=== PATIENT | female | born 1985 | race Caucasian/White ===

== ENCOUNTER 2017-08-05 15:49 | Outpatient (CLI) | payer BC ==
[~2017-08-05] VITALS: Ht 162.6 cm; Wt 79.6 kg
[2017-08-05 16:11] VITALS: Ht 162.6 cm; Wt 79.6 kg
[2017-08-05 16:12] VITALS: BP 130/76; PULSE 101; RESP 18
[2017-08-05] MEDS ORDERED: PREN1TAB79 PO (16:15)
[2017-08-05] MEDS ORDERED: FERR325T5 PO (16:15)
[2017-08-05] MEDS ORDERED: ONDANSETRON 4 MG INJ IV STA (16:31)
[2017-08-05] MEDS ORDERED: TERBUTALINE 1 MG/ML INJ SC ONE (17:00)
[2017-08-05] MEDS ORDERED: LACTATED RINGER'S 1,000 ML IV SCH (17:00)
[2017-08-05] MEDS ORDERED: BUTORPHANOL 2 MG INJ IV ONE (17:00)
--- NOTE | 2017-08-05 17:40 | RADRPT ---
PROCEDURE: OB ultrasound for biophysical profile CLINICAL INDICATION: Contractions. Biophysical profile. TECHNIQUE: Multiple sonographic images of the pelvis were obtained. Transabdominal view of the gr avid uterus are available for review. The images were reviewed on a PACS workstation. COMPARISON: None FINDINGS: breathing movement = 2/2 tone = 2/2 motion = 2/2 COLLIN = 2/2 COLLIN = 15.3 cm Single live intrauterine with cardiac activity. The fetus is in cephalic presentati on. The placenta is posterior, grade 1. IMPRESSION: 1. Single viable intrauterine gestation. 2. Biophysical profile = 8/8. 3. COLLIN = 15.3 cm. RPTAT: HCNS Physician Letty Date Time Electronically viewed and signed by Physician Letty on 08/05/2017 17:40 CS/
[2017-08-05 17:58] LABS: BASOPHILS % 0.2 % (0.0-2.0); EOSINOPHILS # 0.1 10^3/ul (0.0-0.5); EOSINOPHILS % 0.4 % (0.0-7.0); HEMATOCRIT 34.1 % (37.0-47.0); HEMOGLOBIN 11.6 g/dl (12.0-16.0); LYMPHOCYTES # 2.3 10^3/ul (0.8-2.9); LYMPHOCYTES % 13.8 % (15.0-51.0); MEAN CORPUSCULAR HEMOGLOBIN 29.4 pg (29.0-33.0); MEAN CORPUSCULAR VOLUME 86.3 fl (82.0-101.0); MEAN PLATELET VOLUME 10.8 fl (7.4-10.4); MONOCYTE # 0.9 10^3/ul (0.3-0.9); MONOCYTES % 5.6 % (0.0-11.0); NEUTROPHIL # 13.2 10^3/ul (1.6-7.5); PLATELET COUNT 195 10^3/UL (140-415); RED BLOOD COUNT 3.95 10^6/ul (4.20-5.40); WHITE BLOOD COUNT 16.7 10^3/ul (4.8-10.8)
--- NOTE | 2017-08-05 17:59 | RADRPT ---
PROCEDURE: US OB. CLINICAL INDICATION: contractions TECHNIQUE: Multiple sonographic images of the pelvis were obtained. The images were reviewed on a PACS workstation. COMPARISON: No prior studies are available for comparison. FINDINGS: The cervix is not visualized. There is a single viable intrauterine gestation. Cardiac activity is present with 152 beats per min rupesh. There is a cephalic presentation. Measurements were made in order to determine age. The results are as follows: BPD =7.9 cm HC =27.6 cm AC =26.9 cm FL =6.0 cm. Estimated gestational age of approximately 31 weeks, 1 day. The gestational age by LMP is 30 weeks, 4 days. The estimated date of delivery is 10/06/2017. The EFW = 1707 g +/- 256 g or 3 pounds, 12 ounces . The anatomic survey was not performed. The placenta is posterior, grade 1. IMPRESSION: Single viable intrauterine gestation of approximately 31 weeks, 1 day.. The estimated date of evi jaqueline is 10/06/2017 . Physician Letty Date Time Electronically viewed and signed by Physician Letty on 08/05/2017 17:59 CS/
[2017-08-05 18:01] LABS: ADD UMIC NO; UR ASCORBIC ACID NEGATIVE (NEGATIVE); UR BILIRUBIN (Dip) NEGATIVE (NEGATIVE); UR BLOOD (Dip) NEGATIVE (NEGATIVE); UR CLARITY CLEAR (CLEAR); UR COLOR STRAW (YELLOW); UR GLUCOSE (Dip) NEGATIVE (NEGATIVE); UR KETONES (Dip) NEGATIVE (NEGATIVE); UR LEUKOCYTE ESTERASE (Dip) NEGATIVE Leu/ul (NEGATIVE); UR NITRITE (Dip) NEGATIVE (NEGATIVE); UR SPECIFIC GRAVITY (Dip) 1.004 (1.003-1.030); UR TOTAL PROTEIN (Dip) NEGATIVE (NEGATIVE); UR UROBILINOGEN (Dip) NEGATIVE (NEGATIVE)
[2017-08-05 18:22] LABS: ALBUMIN/GLOBULIN RATIO 1.14; BILIRUBIN,INDIRECT 0.2 mg/dl (0-1.1); BILIRUBIN,TOTAL 0.2 mg/dl (0.2-1.3); CALCIUM 9.5 mg/dl (8.4-10.2); CREATININE 0.68 mg/dl (0.44-1.00); POTASSIUM 3.1 mmol/L (3.5-5.1); TOTAL PROTEIN 7.5 g/dl (6.1-8.1)
--- NOTE | 2017-08-05 21:07 | RADRPT ---
PROCEDURE: Limited obstetric ultrasound CLINICAL INDICATION: Pain TECHNIQUE: Multiple transverse and longitudinal grayscale images of the pelvis were obtained deluca sabdominally and transvaginally.. COMPARISON: same day FINDINGS: The cervix is closed with a length of 3.8 cm. RPTAT: AA IMPRESSION: Cervix length measures 3.8 cm. .Josiah De Luna MD, MD Date Time Electronically viewed and signed by .Josiah De Luna MD, MD on 08/05/2017 21:07 .S/
--- NOTE | 2017-08-06 01:04 | TRIAGE ---
OB Triage Datetime Report Generated by CPN: 08/06/2017 01:03 Datetime: 08/05/2017 19:30 Stage of : OB Triage Datetime: 08/05/2017 19:25 Stage of : OB Triage Pain Assessment Pain Scale: 0 Pain Presence: None/Denies Datetime: 08/05/2017 19:02 Stage of : OB Triage Datetime: 08/05/2017 18:30 Stage of : OB Triage Labor Evaluation Frequency: IRREG Monitor Mode: External Duration (sec)2399: 30 Quality: Mild Pattern: Normal: <= 5 Contractions in 10 Minutes Resting Tone [place]: Relaxed Heart Rate FHR Baseline Rate: 140 Monitor Mode: External US Variability: Moderate 6-25 bpm Accelerations: 10X10 Decelerations: None Pain Assessment Pain Scale: 2 Pain Presence: Constant Pain Type: Ache Pain Location: Abdomen Pain Goal: 0 Pain Relief Measures: Comfort Measures Datetime: 08/05/2017 17:30 Stage of : OB Triage Labor Evaluation Frequency: 2-3 Monitor Mode: External Duration (sec)2399: 70 Quality: Mild Pattern: Normal: <= 5 Contractions in 10 Minutes Resting Tone [place]: Relaxed Heart Rate FHR Baseline Rate: 150 Monitor Mode: External US Variability: Moderate 6-25 bpm Accelerations: 15X15 Decelerations: None Pain Assessment Pain Scale: 4 Pain Presence: Constant Pain Type: Ache Pain Location: Abdomen Pain Goal: 0 Pain Relief Measures: Comfort Measures Datetime: 08/05/2017 16:20 Stage of : OB Triage Labor Evaluation Frequency: 2-3 Monitor Mode: External Duration (sec)2399: 70 Quality: Mild Pattern: Normal: <= 5 Contractions in 10 Minutes Resting Tone [place]: Relaxed Heart Rate FHR Baseline Rate: 145 Monitor Mode: External US Variability: Minimal - Undetectable to <=5 bpm Accelerations: 10X10 Decelerations: None Pain Assessment Pain Scale: 4 Pain Presence: Constant Pain Type: Ache Pain Location: Abdomen Pain Goal: 0 Pain Relief Measures: Comfort Measures Datetime: 08/05/2017 16:10 Monitor Mode: External Datetime: 08/05/2017 16:05 Stage of : OB Triage Assessment Type: Triage EGA: 30.4 Maternal Assessment Level of Consciousness: Fully Conscious DTR's/Clonus: DTRs 2+; No Clonus Headache: Denies Blurred Vision: No Respiratory Effort: Unlabored; Regular Rhythm; Equal Expansion Breath Sounds, Left: Clear and Equal Breath Sounds, Right: Clear and Equal Nausea/Vomiting: Denies RUQ Epigastric Pain: Denies Lower Extremities Edema: None Degree: None Upper Extremities Edema: None Degree: None Facial Edema: None Temperature Route: Oral Fall Risk Assessment History of Falling: (0) No Secondary Diagnosis: (0) No Ambulatory Aid: (0) Bedrest/Nurse Assist IV Therapy: (0) No Gait: (0) Normal/Bedrest/Immobile Mental Status: (0) Oriented to Own Ability Fall Score: 0 Fall Risk Score Definition: No Risk: No action required Datetime: 08/05/2017 16:03 Time of Arrival: 08/05/2017 15:42 Arrived By: Ambulatory Arrived From: Home Chief Complaint: abdominal pain Movement: Present Contractions: Regular Rupture of Membranes: Denies Vaginal Bleeding: None Vaginal Discharge: Present Recent Sexual Intercouse: Denies Abdominal Trauma: Not Applicable Patient Complaints: Other Additional Patient Complaints: abdominal pain since last meal at 12pm -last ate at 12pm Time Provider Notified: 08/05/2017 16:31 Provider Notified: nita Initial Plan: EFM, UCs, IV hydration, U/S, CBC/CMP, UA, Urine Culture
--- NOTE | 2017-08-06 09:08 | CONS ---
Date/Time of Note Date/Time of Note DATE: 08/06/17 TIME: 08:43 Consultation Date/Type/Reason Admit Date/Time August 05, 2017 OB triage consult This patient is a 32 years old 2 para 1 0 living 1 who was delivered by section. Her estimated date of confinement is October 10, 2016 which makes her 30 weeks and 4 days today. She came to triage complaining of constant abdominal pain since noontime after eating her branch. In reviewing her past history she had an elevated blood pressure in her past and her history of bicornuate uterus as well as fibroid uterus. On examination she is a well-developed well-nourished patient in no acute distress. Her general vital signs are normal with blood pressure 130/76, pulse rate of 101 , temperature 98.0.. heart rate is around 145, the tracing is fairly benign with some variability occasional acceleration no decelerations. Reason for Consultation Laboratory Tests Test 08/05/17 15:45 08/05/17 17:30 08/05/17 19:30 Urine Color STRAW Urine Clarity CLEAR Urine pH 7.0 Urine Specific [place] 1.004 Urine Ketones NEGATIVEmg/dL Urine Nitrite NEGATIVEmg/dL Urine Bilirubin NEGATIVEmg/dL Urine Urobilinogen NEGATIVEmg/dL Urine Leukocyte Esterase NEGATIVELeu/ul Urine Hemoglobin NEGATIVEmg/dL Urine Glucose NEGATIVEmg/dL Urine Total Protein NEGATIVEmg/dl White Blood Count 16.710^3/ul Red Blood Count 3.9510^6/ul Hemoglobin 11.6g/dl Hematocrit 34.1% Mean Corpuscular Volume 86.3fl Mean Corpuscular Hemoglobin 29.4pg Mean Corpuscular Hemoglobin Concent 34.0g/dl Red Cell Distribution Width 14.0% Platelet Count 14046^3/UL Mean Platelet Volume 10.8fl Neutrophils % 79.0% Lymphocytes % 13.8% Monocytes % 5.6% Eosinophils % 0.4% Basophils % 0.2% Nucleated Red Blood Cells % 0.0/100WBC Neutrophils # 13.210^3/ul Lymphocytes # 2.310^3/ul Monocytes # 0.910^3/ul Eosinophils # 0.110^3/ul Basophils # 0.010^3/ul Nucleated Red Blood Cells # 0.010^3/ul Sodium Level 141mmol/L Potassium Level 3.1mmol/L Chloride Level 106mmol/L Carbon Dioxide Level 24mmol/L Anion Gap 14 Blood Urea Nitrogen 9mg/dl Creatinine 0.68mg/dl Glucose Level 97mg/dl Calcium Level 9.5mg/dl Total Bilirubin 0.2mg/dl Direct Bilirubin 0.00mg/dl Indirect Bilirubin 0.2mg/dl Aspartate Amino Transf (AST/SGOT) 18IU/L Alanine Aminotransferase (ALT/SGPT) 21IU/L Alkaline Phosphatase 89IU/L Total Protein 7.5g/dl Albumin 4.0g/dl Globulin 3.50g/dl Albumin/Globulin Ratio 1.14 Fibronectin NEGATIVE Current Medications Medications (Trade) Dose Ordered Sig/Tip Route PRN Reason Start Time Stop Time Status Last Admin Dose Admin Terbutaline Sulfate 0.25 mg 0.25 mg ONCE ONCE SC 08/05/17 17:00 08/05/17 17:01 DC 08/05/17 16:45 0.25 MG Lactated Ringer's (Lr) 1,000 ml @ 0 mls/hr Q0M IV 08/05/17 17:00 08/05/17 20:14 DC 08/05/17 17:38 1,200 MLS/HR Ondansetron HCl (Zofran Inj) 4 mg ONCE STAT IV 08/05/17 16:31 08/05/17 16:37 DC Butorphanol Tartrate (Stadol) 2 mg ONCE ONCE IV 08/05/17 17:00 08/05/17 17:01 DC Constitutional: No chills, No diaphoresis, No disoriented, No febrile, No improved, No no complaints, No other, No poor po, No requiring IVF, No requiring O2 Eyes: No discharge, No no complaints, No other, No pain, No redness, No visual change ENT: No bleeding, No congestion, No discharge, No dysphagia, No no complaints, No other, No pain, No sore throat Respiratory: No cough, No no complaints, No other, No pain, No pleuritic pain, No shortness of breath, No sputum, No wheezing Cardiovascular: No chest pain, No edema, No lightheadedness, No no complaints, No orthopenea, No other, No palpitations, No paroxysmal nocturnal dyspnea Gastrointestinal: other (Her abdomen is soft no rebound bowel sounds are audible no much of uterine contraction heart tone is normal no CVA tenderness), No blood, No constipation, No decreased appetite, No diarrhea, No flatus, No nausea, No no complaints, No pain, No passing stool, No vomiting Genitourinary: bleeding, discharge, dysuria, flank pain, hematuria, no complaints, other (Pelvic examination was not performed due to lack of any uterine contractions) Musculoskeletal: No back pain, No bone/joint pain, No neck pain, No no complaints, No other, No restricted range of motion, No swelling Skin: No bruising, No erythema, No laceration, No no complaints, No other, No pruritis, No rash, No skin lesions Neurologic: other, No confusion, No dizziness, No focal-weakness, No headache, No no complaints , No seizure, No syncope Endocrine: No dry skin, No no complaints, No other, No polydypsia, No polyuria , No temp intolerance Additional Comments On laboratory studies her CBC is within normal limits except for slight anemia with hemoglobin of 11.6 hematocrit 34.1 platelets was 195,000 Chem-12 were normal liver function tests electrolytes and all of the component of Chem-12 were within normal limits. urinalysis was normal no glycosuria no proteinuria. On ultrasound study report is a single viable intrauterine gestation with cardiac activity 152 bpm cephalic presentation. estimated gestational age was 31 weeks and 1 day estimated weight was 1707. They could not visualize the cervix her amniotic fluid index was reported 15.2 cm . biophysical profile 05/09. With these normal finding patient was reassured and was discharged home to rest at home and avoid hot and irritating foods to be followed in her [facility] clinic. For any major development such as very low movement, vaginal bleeding, any evidence of labor she can always return to triage Social History Smoking Status: Never smoker Exam/Review of Systems Vital Signs Vitals Vital Signs Date Time Temp Pulse Resp B/P Pulse Ox O2 Delivery O2 Flow Rate FiO2 08/05/17 16:12 98.0 101 18 130/76 Room Air Results Result Diagram: 08/05/17 1730 08/05/17 1730 Results 24 hrs Laboratory Tests Test 08/05/17 15:45 08/05/17 17:30 08/05/17 19:30 Urine Color STRAW Urine Clarity CLEAR Urine pH 7.0 Urine Specific [place] 1.004 Urine Ketones NEGATIVE Urine Nitrite NEGATIVE Urine Bilirubin NEGATIVE Urine Urobilinogen NEGATIVE Urine Leukocyte Esterase NEGATIVE Urine Hemoglobin NEGATIVE Urine Glucose NEGATIVE Urine Total Protein NEGATIVE White Blood Count 16.7 H Red Blood Count 3.95 L Hemoglobin 11.6 L Hematocrit 34.1 L Mean Corpuscular Volume 86.3 Mean Corpuscular Hemoglobin 29.4 Mean Corpuscular Hemoglobin Concent 34.0 Red Cell Distribution Width 14.0 Platelet Count 195 Mean Platelet Volume 10.8 H Neutrophils % 79.0 H Lymphocytes % 13.8 L Monocytes % 5.6 Eosinophils % 0.4 Basophils % 0.2 Nucleated Red Blood Cells % 0.0 Neutrophils # 13.2 H Lymphocytes # 2.3 Monocytes # 0.9 Eosinophils # 0.1 Basophils # 0.0 Nucleated Red Blood Cells # 0.0 Sodium Level 141 Potassium Level 3.1 L Chloride Level 106 Carbon Dioxide Level 24 Anion Gap 14 Blood Urea Nitrogen 9 Creatinine 0.68 Glucose Level 97 Calcium Level 9.5 Total Bilirubin 0.2 Direct Bilirubin 0.00 Indirect Bilirubin 0.2 Aspartate Amino Transf (AST/SGOT) 18 Alanine Aminotransferase (ALT/SGPT) 21 Alkaline Phosphatase 89 Total Protein 7.5 Albumin 4.0 Globulin 3.50 H Albumin/Globulin Ratio 1.14 Fibronectin NEGATIVE CRYSTAL POLANCO MD Aug 06, 2017 08:59
== END 2017-08-05 20:13 | disposition home or self-care (01) ==
LOC: OBT 15:49 → L-D 15:49 → OBT 20:13
PROVIDERS: ATTEND Obstetrics & Gynecology
DX: O26.893 Other specified pregnancy related conditions, third trimester (principal); Z3A.30 30 weeks gestation of pregnancy; R10.9 Unspecified abdominal pain
CPT/HCPCS: 36415; 76815; 76817; 76818; 80053; 81003; 82731; 85025; 87086; 96372; G0463; J3105

== ENCOUNTER 2017-09-16 15:20 | Outpatient (CLI) | payer BC ==
[~2017-09-16] VITALS: Ht 154.9 cm; Wt 82.2 kg
[~2017-09-16 15:20] MED LIST: FERR325T5 PO; PREN1TAB79 PO
[2017-09-16] MEDS ORDERED: LABE100T3 PO (15:32)
[2017-09-16 15:48] VITALS: BP 119/76; PULSE 86; RESP 18; Ht 154.9 cm; Wt 82.2 kg
[2017-09-16 15:56] LABS: BASOPHILS % 0.3 % (0.0-2.0); EOSINOPHILS # 0.1 10^3/ul (0.0-0.5); EOSINOPHILS % 1.1 % (0.0-7.0); HEMATOCRIT 31.8 % (37.0-47.0); HEMOGLOBIN 10.9 g/dl (12.0-16.0); LYMPHOCYTES # 2.3 10^3/ul (0.8-2.9); LYMPHOCYTES % 25.4 % (15.0-51.0); MEAN CORPUSCULAR HEMOGLOBIN 28.4 pg (29.0-33.0); MEAN CORPUSCULAR HGB CONC 34.3 g/dl (32.0-37.0); MEAN CORPUSCULAR VOLUME 82.8 fl (82.0-101.0); MEAN PLATELET VOLUME 10.4 fl (7.4-10.4); MONOCYTE # 0.5 10^3/ul (0.3-0.9); MONOCYTES % 5.9 % (0.0-11.0); NEUTROPHIL # 5.9 10^3/ul (1.6-7.5); NEUTROPHILS % 66.3 % (39.0-77.0); PLATELET COUNT 181 10^3/UL (140-415); RED BLOOD COUNT 3.84 10^6/ul (4.20-5.40); RED CELL DISTRIBUTION WIDTH 14.4 % (11.5-14.5); WHITE BLOOD COUNT 8.9 10^3/ul (4.8-10.8)
[2017-09-16 16:04] LABS: ADD UMIC NO; UR ASCORBIC ACID 20 mg/dL (NEGATIVE); UR BILIRUBIN (Dip) NEGATIVE (NEGATIVE); UR BLOOD (Dip) NEGATIVE (NEGATIVE); UR CLARITY CLEAR (CLEAR); UR COLOR YELLOW (YELLOW); UR GLUCOSE (Dip) NEGATIVE (NEGATIVE); UR KETONES (Dip) NEGATIVE (NEGATIVE); UR LEUKOCYTE ESTERASE (Dip) NEGATIVE Leu/ul (NEGATIVE); UR NITRITE (Dip) NEGATIVE (NEGATIVE); UR SPECIFIC GRAVITY (Dip) 1.012 (1.003-1.030); UR TOTAL PROTEIN (Dip) NEGATIVE (NEGATIVE); UR UROBILINOGEN (Dip) NEGATIVE (NEGATIVE)
[2017-09-16 16:14] LABS: INR 0.95; PARTIAL THROMBOPLASTIN TIME 27.5 Sec (25.0-35.0); PROTIME 12.8 Sec (11.9-14.9)
[2017-09-16 16:18] LABS: ALBUMIN 3.5 g/dl (3.3-4.9); ALBUMIN/GLOBULIN RATIO 0.94; BILIRUBIN,INDIRECT 0.3 mg/dl (0-1.1); BILIRUBIN,TOTAL 0.3 mg/dl (0.2-1.3); CALCIUM 9.7 mg/dl (8.4-10.2); CREATININE 0.68 mg/dl (0.44-1.00); POTASSIUM 3.7 mmol/L (3.5-5.1); TOTAL PROTEIN 7.2 g/dl (6.1-8.1); URIC ACID 3.9 mg/dl (3.1-7.9)
--- NOTE | 2017-09-16 16:35 | RADRPT ---
PROCEDURE: OB ultrasound for biophysical profile CLINICAL INDICATION: Hypertension TECHNIQUE: Multiple sonographic images of the pelvis were obtained. Transabdominal views of the g ravid uterus are available for review. The images were reviewed on a PACS workstation. COMPARISON: None FINDINGS: breathing movement = 2/2 tone = 2/2 motion = 2/2 COLLIN = 2/2 COLLIN = 11.1 cm Single live intrauterine with cardiac activity of 134 bpm. position is cephal ic. The placenta is posterior. IMPRESSION: 1. Single live intrauterine gestation. 2. Biophysical profile = 8. 3. COLLIN = 11.1 cm. RPTAT: HH .Nila Quintero MD, MD Date Time Electronically viewed and signed by .Nila Quintero MD, on 09/16/2017 16:34 .G/
[2017-09-16 16:43] LABS: SCRET 0.68 mg/dl (0.44-1.00)
--- NOTE | 2017-09-16 17:29 | TRIAGE ---
OB Triage Datetime Report Generated by CPN: 09/16/2017 17:28 Datetime: 09/16/2017 17:00 Stage of : OB Triage Maternal Assessment Level of Consciousness: Fully Conscious Labor Evaluation Frequency: NONE Monitor Mode: External Resting Tone [place]: Relaxed Heart Rate FHR Baseline Rate: 135 Monitor Mode: External US Variability: Moderate 6-25 bpm Accelerations: 15X15 Decelerations: None Category: Category I Pain Assessment Pain Scale: 0 Pain Goal: 3 Vaginal Exam Membrane Status: Intact Vaginal Bleeding: None Datetime: 09/16/2017 15:46 Assessment Type: Triage Maternal Assessment Level of Consciousness: Fully Conscious DTR's/Clonus: DTRs 2+; No Clonus Headache: Denies Blurred Vision: No Respiratory Effort: Unlabored; Regular Rhythm; Equal Expansion Breath Sounds, Left: Clear and Equal Breath Sounds, Right: Clear and Equal Nausea/Vomiting: Denies RUQ Epigastric Pain: Denies Lower Extremities Edema: None Degree: None Upper Extremities Edema: None Degree: None Facial Edema: None Fall Risk Assessment History of Falling: (0) No Secondary Diagnosis: (0) No Ambulatory Aid: (0) Bedrest/Nurse Assist IV Therapy: (0) No Gait: (0) Normal/Bedrest/Immobile Mental Status: (0) Oriented to Own Ability Fall Score: 0 Fall Risk Score Definition: No Risk: No action required Comments: EFM OFF FOR BEDSIDE U/S. Datetime: 09/16/2017 15:28 Time of Arrival: 09/16/2017 15:10 EGA: 35.4 Arrived By: Ambulatory Arrived From: Home Chief Complaint: PT HERE WITH ORDERS FOR 24 HOUR URINE COLLECTION Movement: Present Contractions: Denies/Absent Vaginal Bleeding: None Patient Complaints: None Time Provider Notified: 09/16/2017 17:15 Provider Notified: FOROOHAR Initial Plan: BPP/PIH PANEL/24HR URINE/ Datetime: 08/06/2017 19:50 Stage of : OB Triage Pain Assessment Pain Scale: 0 Datetime: 08/05/2017 16:05 EGA: 29.4 Fall Score: 0 Fall Risk Score Definition: No Risk: No action required
--- NOTE | 2017-09-16 17:46 | CONS ---
Date/Time of Note Date/Time of Note DATE: 09/16/17 TIME: 17:33 Consultation Date/Type/Reason Admit Date/Time September 16, 2017 OB triage visit This patient is a 32 years old 2 para 1 who had her first delivery by section due to elevated blood pressure. Her estimated date of confinement is October 17, 2017 which makes her 35 weeks and 4 days. She came to triage clinic for evaluation of hypertension especially in view of the previous section and the hypertension with a previous . On examination she is somewhat overweight patient near-term her general examination appears to be normal ,her vital signs are basically normal with blood pressure 119/76, pulse rate 86, respiration 18 temperature 98.3 and oxygen saturation 96% room temperature,,. On examination she has 1+ pitting edema, knee-jerk reflexes are fairly normal , does not have any edema of the lower extremity. Abdomen is soft , heart tone is normal; tracing is reactive with fairly good variability,, and occasional acceleration, no decelerations. . Abdomen is soft ,very infrequent contraction, no CVA tenderness Reason for Consultation Laboratory Tests Test 09/16/17 12:30 09/16/17 15:25 09/16/17 15:45 Urine Random Creatinine 48.49mg/dl Urine Collection Duration 24hrs Urine Total Volume 24 Hours 2400ml/24hrs Urine Creatinine Timed 24hrs Creatinine Clearance 118.8mls/min Urine Total Volume (Protein) 2400mls Urine Total Protein 24 Hour 408.0mg/24hrs Urine Color YELLOW Urine Clarity CLEAR Urine pH 7.0 Urine Specific [place] 1.012 Urine Ketones NEGATIVEmg/dL Urine Nitrite NEGATIVEmg/dL Urine Bilirubin NEGATIVEmg/dL Urine Urobilinogen NEGATIVEmg/dL Urine Leukocyte Esterase NEGATIVELeu/ul Urine Hemoglobin NEGATIVEmg/dL Urine Glucose NEGATIVEmg/dL Urine Total Protein NEGATIVEmg/dl White Blood Count 8.910^3/ul Red Blood Count 3.8410^6/ul Hemoglobin 10.9g/dl Hematocrit 31.8% Mean Corpuscular Volume 82.8fl Mean Corpuscular Hemoglobin 28.4pg Mean Corpuscular Hemoglobin Concent 34.3g/dl Red Cell Distribution Width 14.4% Platelet Count 80019^3/UL Mean Platelet Volume 10.4fl Neutrophils % 66.3% Lymphocytes % 25.4% Monocytes % 5.9% Eosinophils % 1.1% Basophils % 0.3% Nucleated Red Blood Cells % 0.0/100WBC Neutrophils # 5.910^3/ul Lymphocytes # 2.310^3/ul Monocytes # 0.510^3/ul Eosinophils # 0.110^3/ul Basophils # 0.010^3/ul Nucleated Red Blood Cells # 0.010^3/ul Prothrombin Time 12.8Sec Prothrombin Time Ratio 1.0 INR International Normalized Ratio 0.95 Activated Partial Thromboplast Time 27.5Sec Fibrinogen 616.0mg/dl Sodium Level 137mmol/L Potassium Level 3.7mmol/L Chloride Level 104mmol/L Carbon Dioxide Level 23mmol/L Anion Gap 14 Blood Urea Nitrogen 6mg/dl Creatinine 0.68mg/dl Glucose Level 85mg/dl Uric Acid 3.9mg/dl Calcium Level 9.7mg/dl Total Bilirubin 0.3mg/dl Direct Bilirubin 0.00mg/dl Indirect Bilirubin 0.3mg/dl Aspartate Amino Transf (AST/SGOT) 20IU/L Alanine Aminotransferase (ALT/SGPT) 23IU/L Alkaline Phosphatase 132IU/L Total Protein 7.2g/dl Albumin 3.5g/dl Globulin 3.70g/dl Albumin/Globulin Ratio 0.94 Constitutional: No chills, No diaphoresis, No disoriented, No febrile, No improved, No no complaints, No other, No poor po, No requiring IVF, No requiring O2 Eyes: No discharge, No no complaints, No other, No pain, No redness, No visual change ENT: No bleeding, No congestion, No discharge, No dysphagia, No no complaints, No other, No pain, No sore throat Respiratory: No cough, No no complaints, No other, No pain, No pleuritic pain, No shortness of breath, No sputum, No wheezing Cardiovascular: No chest pain, No edema, No lightheadedness, No no complaints, No orthopenea, No other, No palpitations, No paroxysmal nocturnal dyspnea Gastrointestinal: other (Pelvic examination was not performed due to lack of any contractions), No blood, No constipation, No decreased appetite, No diarrhea, No flatus, No nausea, No no complaints, No pain, No passing stool, No vomiting Genitourinary: No bleeding, No discharge, No dysuria, No flank pain, No hematuria, No no complaints, No other Musculoskeletal: No back pain, No bone/joint pain, No neck pain, No no complaints, No other, No restricted range of motion, No swelling Skin: No bruising, No erythema, No laceration, No no complaints, No other, No pruritis, No rash, No skin lesions Neurologic: other (Knee-jerk reflexes normal), No confusion, No dizziness, No focal-weakness, No headache, No no complaints , No seizure, No syncope Additional Comments Laboratory study; her CBC was basically normal except for slight anemia, hemoglobin of 10.9 hematocrit 31.8 and the platelet was 181,000. She brought back a 24 hour urine collection. her 24 hour urine protein came back 408', creatinine clearance was 108.8, the volume of urine was 2400 cc her chem panel were basically normal except for BUN of 6 and alkaline phosphatase 132, her coagulation studies were basically normal; PTT, INR and PT fibrinogen however was 616 which was somewhat elevated, urinalysis as I mentioned was normal in appearance We ordered an ultrasound study; the report came back; a single live intrauterine ,with cardiac activity 134 bpm, position is cephalic placenta is posterior amniotic fluid index : With these finding which indicate early PIH, patient was advised to rest to do the kick count and return to triage in case of head ache, epigastric pain difficulty with vision and to see Dr. Marrero soon for office visit which apparently will be on Monday and return to the triage either on Monday or Monday for further workup. End of dictation Social History Smoking Status: Never smoker Exam/Review of Systems Vital Signs Vitals Vital Signs Date Time Temp Pulse Resp B/P Pulse Ox O2 Delivery O2 Flow Rate FiO2 09/16/17 15:48 98.3 86 18 119/76 96 Room Air Results Result Diagram: 09/16/17 1545 09/16/17 1545 Results 24 hrs Laboratory Tests Test 09/16/17 12:30 09/16/17 15:25 09/16/17 15:45 Urine Random Creatinine 48.49 Urine Collection Duration 24 Urine Total Volume 24 Hours 2400 Urine Creatinine Timed 24 Creatinine Clearance 118.8 Urine Total Volume (Protein) 2400 Urine Total Protein 24 Hour 408.0 H Urine Color YELLOW Urine Clarity CLEAR Urine pH 7.0 Urine Specific [place] 1.012 Urine Ketones NEGATIVE Urine Nitrite NEGATIVE Urine Bilirubin NEGATIVE Urine Urobilinogen NEGATIVE Urine Leukocyte Esterase NEGATIVE Urine Hemoglobin NEGATIVE Urine Glucose NEGATIVE Urine Total Protein NEGATIVE White Blood Count 8.9 # Red Blood Count 3.84 L Hemoglobin 10.9 L Hematocrit 31.8 L Mean Corpuscular Volume 82.8 Mean Corpuscular Hemoglobin 28.4 L Mean Corpuscular Hemoglobin Concent 34.3 Red Cell Distribution Width 14.4 Platelet Count 181 Mean Platelet Volume 10.4 Neutrophils % 66.3 Lymphocytes % 25.4 Monocytes % 5.9 Eosinophils % 1.1 Basophils % 0.3 Nucleated Red Blood Cells % 0.0 Neutrophils # 5.9 Lymphocytes # 2.3 Monocytes # 0.5 Eosinophils # 0.1 Basophils # 0.0 Nucleated Red Blood Cells # 0.0 Prothrombin Time 12.8 Prothrombin Time Ratio 1.0 INR International Normalized Ratio 0.95 Activated Partial Thromboplast Time 27.5 Fibrinogen 616.0 H Sodium Level 137 Potassium Level 3.7 Chloride Level 104 Carbon Dioxide Level 23 Anion Gap 14 Blood Urea Nitrogen 6 L Creatinine 0.68 Glucose Level 85 Uric Acid 3.9 Calcium Level 9.7 Total Bilirubin 0.3 Direct Bilirubin 0.00 Indirect Bilirubin 0.3 Aspartate Amino Transf (AST/SGOT) 20 Alanine Aminotransferase (ALT/SGPT) 23 Alkaline Phosphatase 132 H Total Protein 7.2 Albumin 3.5 Globulin 3.70 H Albumin/Globulin Ratio 0.94 CRYSTAL POLANCO MD Sep 16, 2017 17:46
== END 2017-09-16 17:35 | disposition home or self-care (01) ==
LOC: OBT 15:20 → L-D 15:20 → OBT 17:35
PROVIDERS: ATTEND Obstetrics & Gynecology
DX: O16.3 Unspecified maternal hypertension, third trimester (principal); O34.219 Maternal care for unspecified type scar from previous cesarean delivery; Z3A.35 35 weeks gestation of pregnancy
CPT/HCPCS: 76818; 80053; 81003; 82575; 84156; 84560; 85025; 85384; 85610; 85730

== ENCOUNTER 2017-09-26 14:07 | Inpatient (IN) | END 2017-09-29 13:10 | disposition home or self-care (01) | DRG 766 ==